=== PATIENT | female | born 1945 | race Caucasian/White ===

== ENCOUNTER 2024-08-01 09:34 | Outpatient (CLI) | payer OTHER | END 2024-08-01 09:35 | disposition home or self-care (01) | LOC: NM 09:34 | PROVIDERS: ATTEND Specialist | DX: T84.84XA Pain due to internal orthopedic prosthetic devices, implants and grafts, initial encounter (principal); Z96.653 Presence of artificial knee joint, bilateral | CPT/HCPCS: 78315; A9503 ==